=== PATIENT | female | born 1960 | race Caucasian/White ===

== ENCOUNTER 2024-11-09 15:25 | Emergency (ER) | payer OTHER ==
[~2024-11-09] VITALS: Ht 165.1 cm; Wt 108.0 kg
[~2024-11-09 15:25] MED LIST: ALBU8.5H8 IH; AMLO10TA4 PO; EPIN0.3P2 IM; ERGO500014 PO
[2024-11-09 16:22] LABS: SERUM AMMONIA 20 umol/L (11-32)
[2024-11-09 16:25] LABS: CALCIUM, SERUM 9.1 mg/dL (8.5-10.1); CREATININE 0.8 mg/dL (0.6-1.3); SODIUM SERUM 140 mmol/L (136-145); UREA NITROGEN, BLOOD 18 mg/dL (7-18)
[2024-11-09 16:31] LABS: ASPARTATE AMINOTRANSFERASE 71 U/L (15-37); TOTAL PROTEIN, SERUM 7.9 g/dL (6.4-8.2)
[2024-11-09 16:32] LABS: ALCOHOL, BLOOD < 3 mg/dL (0-10)
[2024-11-09 16:37] LABS: INR 1.02 (0.91-1.10)
[2024-11-09 16:45] LABS: PLATELET COUNT (AUTO) 240 K/uL (150-450); RED BLOOD CELL COUNT(AUTO) 4.26 MIL/uL (4.0-5.2); RED CELL DISTRIBUTION WIDTH 13.9 % (11.5-15.0); WHITE BLOOD COUNT (AUTO) 9.4 K/uL (4.3-11.0)
[2024-11-09] MEDS ORDERED: LEVOTHYROXINE SODIUM 25 MCG TABLET ONE (17:44)
[2024-11-09] MEDS ORDERED: LEVOTHYROXINE SODIUM 50 MCG TABLET ONE (17:44)
[2024-11-09] MEDS: LEVOTHYROXINE SODIUM 75 MCG TABLET PO SCH (17:45)
[2024-11-09] MEDS ORDERED: HYDROCODONE/APAP 5/325MG TABLET ONE ×2 (18:05→20:36)
[2024-11-09] MEDS: HYDROCODONE/APAP 5/325MG TABLET PO ONE ×2 (18:06→20:36)
[2024-11-09] MEDS ORDERED: LEVO137T24 PO (19:03)
[2024-11-09] MEDS ORDERED: IBUP-1490 PO (19:03)
[2024-11-09 20:59] VITALS: BP 120/66; TEMP 98.4; O2SAT 96
== END 2024-11-09 21:00 | disposition home or self-care (01) ==
LOC: ER 15:55
DX: R55 Syncope and collapse (principal); R07.89 Other chest pain; E03.9 Hypothyroidism, unspecified; I10 Essential (primary) hypertension; E87.6 Hypokalemia; E11.9 Type 2 diabetes mellitus without complications; J45.909 Unspecified asthma, uncomplicated; Z79.890 Hormone replacement therapy; Z79.899 Other long term (current) drug therapy; Z88.1 Allergy status to other antibiotic agents; V49.9XXA Car occupant (driver) (passenger) injured in unspecified traffic accident, initial encounter; Y93.89 Activity, other specified; Y92.410 Unspecified street and highway as the place of occurrence of the external cause; Y99.9 Unspecified external cause status
CPT/HCPCS: 36415; 70450-TC; 71045-TC; 72125-TC; 80048-TC; 80076-TC; 82140-TC; 84443-TC; 84484-TC; 85025-TC; 85730-TC; G0480